=== PATIENT | female | born 1950 | race Asian ===

== ENCOUNTER 2016-12-10 15:34 | Inpatient (IN) | payer OTHER ==
[~2016-12-10] VITALS: Ht 160 cm; Wt 86.2 kg
[~2016-12-10 15:34] MED LIST: ALEVE220 M1 PO; ASA LO-DOSE81 MG PO; DULOXETINE HCL60 MG PO; FLUTMIS6 INH; GLIP10TA55 PO; LEVEMIR SC; METF500T PO
[2016-12-10 16:04] VITALS: BP 134/71; TEMP 98.3
[2016-12-10] MEDS ORDERED: MEDROXYPR AC5 MG OR (16:07)
[2016-12-10] MEDS ORDERED: INSU100P SC (16:08)
[2016-12-10 16:31] LABS: PLATELET COUNT 350 K/uL (152-353)
[2016-12-10 16:44] LABS: POTASSIUM 3.9 mmol/L (3.6-5.2); SODIUM 129 mmol/L (136-145)
[2016-12-10 20:31] LABS: POTASSIUM 3.9 mmol/L (3.6-5.2); SODIUM 137 mmol/L (136-145)
[2016-12-10 21:05] VITALS: BP 140/68; TEMP 98; Ht 160 cm; Wt 86.2 kg
--- NOTE | 2016-12-10 22:04 | NUR ---
BLOOD SUGAR 154.
[2016-12-11] VITALS (12 sets, daily range): BP systolic 11–139; BP diastolic 51–91; TEMP 98.2–98.6
--- NOTE | 2016-12-11 01:09 | NUR ---
LATE ENTRY 1900. RECEIVED PT FROM ER TRANSPORTED VIA WHEELCHAIR. PT ADMITTED WITH DKA. PT IS ALERT AND ORIENTED. PRESENTLY ON A INSULIN DRIP AT 7CC/HR VIA INFUSION PUMP. BLOOD SUGARS BEING CHECKED AND MONITORED. ADMISSION ASSESSMENT COMPLETED. FAMILY IN TO SPEAK TO PT.
--- NOTE | 2016-12-11 01:29 | NUR ---
BLOOD SUGAR CHECKED.
[2016-12-11 02:59] LABS: POTASSIUM 3.8 mmol/L (3.6-5.2); SODIUM 138 mmol/L (136-145)
--- NOTE | 2016-12-11 03:55 | NUR ---
UP OUT OF BED TO BATHROOM. VOIDED 500 ML OF DARK URINE. UA SPECIMAN COLLECTED AND SENT TO LAB.
--- NOTE | 2016-12-11 04:48 | NUR ---
PT STATES SHE FEELS MUCH BETTER. DOES REPORT TO THIS NURSE THAT SHE HAS HAD SURGERY A SKIN GRAFT AND HER ANKLE. IN THE PAST. INSULIN DRIP OF NOVOLIN R INFUSING AT 2 MLS AN HOUR. NS INFUSING AT 100 ML/HR.
--- NOTE | 2016-12-11 06:36 | NUR ---
LAB [facility] BLOOD FOR AM LABS.
[2016-12-11 06:38] LABS: PLATELET COUNT 344 K/uL (152-353)
[2016-12-11 06:46] LABS: POTASSIUM 3.6 mmol/L (3.6-5.2); SODIUM 134 mmol/L (136-145)
--- NOTE | 2016-12-11 07:30 | NUR ---
AM ASSESSMENT DONE. NAD NOTED AT THIS TIME.
--- NOTE | 2016-12-11 08:00 | NUR ---
BLOOD SUGAR 157. INSULIN DRIP INCREASED TO 2ML/2U/HR PER ORDER.
--- NOTE | 2016-12-11 08:40 | NUR ---
DR. BENSON HERE TO SEE PT. RECEIVED DIET ORDER FOR PT.
--- NOTE | 2016-12-11 09:07 | NUR ---
PT SITTING ON SIDE OF BED EATING BREAKFAST.
--- NOTE | 2016-12-11 09:52 | NUR ---
FSBS 225. INSULIN DRIP INCREASED TO 4U/HR. WILL CONTINUE TO MONITOR.
--- NOTE | 2016-12-11 11:30 | NUR ---
DR. BENSON HERE TO SEE PT.
--- NOTE | 2016-12-11 12:01 | NUR ---
BLOOD SUGAR 2263. INSULINI DRIP INCREASED TO 5U/HR.
--- NOTE | 2016-12-11 12:20 | NUR ---
BLOOD SUGAR 263. INSULIN DRIP INCREASED TO 5U/HR.
--- NOTE | 2016-12-11 12:28 | NUR ---
URINE NEGATIVE FOR KETONES. INSULIN DRIP STOPPED. WILL CONTINUE TO MONITOR.
--- NOTE | 2016-12-11 14:30 | NUR ---
PT TALKING ON CELL PHONE. NAD NOTED AT THIS TIME.
--- NOTE | 2016-12-11 16:41 | NUR ---
PT WATCHING TV. NAD NOTED AT THIS TIME.
--- NOTE | 2016-12-11 16:49 | NUR ---
FSBS 356. RECEIVED NEW ORDER FOR SSC.
--- NOTE | 2016-12-11 18:12 | NUR ---
MOVED PT TO ROOM 1107 VIA IN STABLE COND. ORIENTED PT TO ROOM SURROUNDINGS. GAVE REPORT TO MILAN PARKER RN.
--- NOTE | 2016-12-11 18:12 | NUR ---
Pt. MOVED TO ROOM 1107 FROM ICU. NO C/O VOICED.
[2016-12-11 22:39] LABS: POTASSIUM 4.1 mmol/L (3.6-5.2); SODIUM 135 mmol/L (136-145)
[2016-12-12] VITALS: BP 123/54; TEMP 98.1
[2016-12-12 04:00] VITALS: BP 129/66; TEMP 98
[2016-12-12 05:42] LABS: PLATELET COUNT 321 K/uL (152-353)
[2016-12-12 05:56] LABS: POTASSIUM 3.7 mmol/L (3.6-5.2); SODIUM 131 mmol/L (136-145)
[2016-12-12 08:00] VITALS: BP 114/54; TEMP 98.2
[2016-12-12 12:00] VITALS: BP 137/72; TEMP 98.2
[2016-12-12 15:54] VITALS: BP 152/65; TEMP 98.1
[2016-12-12 20:00] VITALS: BP 126/59; TEMP 98
[2016-12-12 20:59] LABS: POTASSIUM 3.9 mmol/L (3.6-5.2); SODIUM 131 mmol/L (136-145)
[2016-12-13] VITALS: BP 123/64; TEMP 98.3
[2016-12-13 04:00] VITALS: BP 134/71; TEMP 98.5
[2016-12-13 05:21] LABS: PLATELET COUNT 305 K/uL (152-353)
[2016-12-13 05:53] LABS: POTASSIUM 3.5 mmol/L (3.6-5.2); SODIUM 132 mmol/L (136-145)
[2016-12-13 08:00] VITALS: BP 131/82; TEMP 98
[2016-12-13 12:00] VITALS: BP 150/81; TEMP 98
[2016-12-13 16:00] VITALS: BP 138/81; TEMP 97.6
[2016-12-13 20:00] VITALS: BP 149/68; TEMP 98.7
[2016-12-14] VITALS: BP 147/78; TEMP 98.9
[2016-12-14 05:24] LABS: PLATELET COUNT 362 K/uL (152-353)
[2016-12-14 05:37] LABS: POTASSIUM 3.6 mmol/L (3.6-5.2); SODIUM 135 mmol/L (136-145)
[2016-12-14 05:55] VITALS: BP 147/80; TEMP 98
[2016-12-14 08:00] VITALS: BP 132/74; TEMP 98.1
[2016-12-14 11:53] VITALS: BP 162/83; TEMP 98.7
== END 2016-12-14 15:15 | disposition home or self-care (01) | DRG 638 ==
LOC: ED 15:34 → ICU 17:20 → MED/SURG 12-11 18:12
PROVIDERS: Emergency Medicine
DX: E13.10 Other specified diabetes mellitus with ketoacidosis without coma (principal); N39.0 Urinary tract infection, site not specified
CPT/HCPCS: 36415; 36600; 80048; 80053; 81000; 81002; 82805; 82948; 82962; 83036; 84443; 85027; 96372; 99283; J1650; J1815; J2405; J3490

== ENCOUNTER 2017-06-10 14:00 | Emergency (ER) | payer OTHER ==
[~2017-06-10] VITALS: Ht 160 cm; Wt 83.9 kg
[~2017-06-10 14:00] MED LIST changes: +INSU100P SC; +MEDROXYPR AC5 MG OR
[2017-06-10 14:05] VITALS: TEMP 98
[2017-06-10 15:50] VITALS: BP 112/82
== END 2017-06-10 15:51 | disposition home or self-care (01) ==
LOC: ED 14:00
DX: L03.012 Cellulitis of left finger (principal)
CPT/HCPCS: 96372; 99283; J0696

== ENCOUNTER 2017-06-17 14:44 | Outpatient (CLI) | payer OTHER | END 2017-06-17 15:45 | disposition home or self-care (01) | LOC: LABW 14:44 | DX: B35.1 Tinea unguium (principal) | CPT/HCPCS: 36415; 84450; 84460 ==

== ENCOUNTER → 2017-08-16 11:16 | Outpatient (CLI) | payer OTHER | END | disposition short-term general hospital (02) | LOC: AMB 11:16 | DX: R06.02 Shortness of breath (principal) ==

== ENCOUNTER 2017-09-05 14:30 | Emergency (ER) | payer OTHER ==
[~2017-09-05] VITALS: Ht 160 cm; Wt 86.2 kg
[2017-09-05 14:53] VITALS: TEMP 98.2
[2017-09-05 16:00] VITALS: BP 132/76
== END 2017-09-05 16:15 | disposition home or self-care (01) ==
LOC: ED 14:30
DX: R10.84 Generalized abdominal pain (principal)
CPT/HCPCS: 99283

== ENCOUNTER 2018-05-23 10:33 | Outpatient (CLI) | payer OTHER | END 2018-05-23 19:17 | disposition home or self-care (01) | LOC: MAMMO 10:33 | DX: Z12.31 Encounter for screening mammogram for malignant neoplasm of breast (principal) ==

== ENCOUNTER 2018-08-25 17:03 | Emergency (ER) | payer OTHER ==
[~2018-08-25] VITALS: Ht 160 cm; Wt 88.0 kg
[2018-08-25 17:55] LABS: PLATELET COUNT 393 K/uL (152-353)
[2018-08-25 18:04] LABS: POTASSIUM 4.1 mmol/L (3.6-5.2); SODIUM 133 mmol/L (136-145)
[2018-08-25 20:24] VITALS: BP 90/58; TEMP 97.9
== END 2018-08-25 20:25 | disposition home or self-care (01) ==
LOC: ED 17:03
DX: E11.65 Type 2 diabetes mellitus with hyperglycemia (principal)
CPT/HCPCS: 36415; 80053; 81000; 82550; 82553; 83036; 84484; 85027; 93005; 99283

== ENCOUNTER 2019-06-17 13:23 | Outpatient (CLI) | payer OTHER | END 2019-06-17 23:43 | disposition home or self-care (01) | LOC: MAMMO 13:23 | DX: Z12.31 Encounter for screening mammogram for malignant neoplasm of breast (principal) ==

== ENCOUNTER 2019-06-28 14:09 | Emergency (ER) | payer OTHER ==
[~2019-06-28] VITALS: Ht 160 cm; Wt 83.9 kg
[2019-06-28 14:55] LABS: PLATELET COUNT 489 K/uL (152-353)
[2019-06-28 15:02] LABS: POTASSIUM 4.5 mmol/L (3.6-5.2)
[2019-06-28 15:09] LABS: PARTIAL THROMBOPLASTIN TIME 28.7 SECONDS (24.5-33.6)
[2019-06-28 15:58] VITALS: BP 112/59; TEMP 98.1
== END 2019-06-28 16:00 | disposition home or self-care (01) ==
LOC: ED 14:09
PROVIDERS: Family Medicine
DX: E11.649 Type 2 diabetes mellitus with hypoglycemia without coma (principal); Z79.4 Long term (current) use of insulin; G45.9 Transient cerebral ischemic attack, unspecified; R06.4 Hyperventilation
CPT/HCPCS: 80053; 81000; 85027; 85610; 85730; 99283

== ENCOUNTER 2019-06-30 12:23 | Outpatient (CLI) | payer OTHER | END 2019-06-30 12:31 | disposition short-term general hospital (02) | LOC: AMB 12:23 | DX: R53.1 Weakness (principal) | CPT/HCPCS: A0425; A0427 ==

== ENCOUNTER 2019-06-30 12:33 | Observation (INO) | payer OTHER ==
[~2019-06-30] VITALS: Ht 160 cm; Wt 84.4 kg
[2019-06-30 12:35] VITALS: BP 116/62; TEMP 98.4
[2019-06-30 13:02] LABS: PLATELET COUNT 461 K/uL (152-353)
[2019-06-30 13:06] LABS: POTASSIUM 4.7 mmol/L (3.6-5.2)
[2019-06-30 13:23] LABS: PARTIAL THROMBOPLASTIN TIME 28.3 SECONDS (24.5-33.6)
[2019-06-30 15:36] VITALS: BP 142/60; TEMP 97.8; Ht 160 cm; Wt 84.4 kg
[2019-06-30 21:03] VITALS: BP 155/66; TEMP 97.9
[2019-07-01] VITALS: BP 98/41; TEMP 98.4
[2019-07-01 04:00] VITALS: BP 108/60; TEMP 97.7
[2019-07-01 05:35] LABS: PLATELET COUNT 335 K/uL (152-353)
[2019-07-01 06:08] LABS: POTASSIUM 4.2 mmol/L (3.6-5.2)
== END 2019-07-01 17:35 | disposition home or self-care (01) ==
LOC: ED 12:33 → MED/SURG 14:15
PROVIDERS: Internal Medicine; ADMIT Family Medicine
DX: G45.8 Other transient cerebral ischemic attacks and related syndromes (principal); E11.9 Type 2 diabetes mellitus without complications; I10 Essential (primary) hypertension; R53.1 Weakness; R47.81 Slurred speech; R13.19 Other dysphagia; J44.9 Chronic obstructive pulmonary disease, unspecified; R41.82 Altered mental status, unspecified
CPT/HCPCS: 36415; 80048; 80053; 80061; 81000; 84443; 85027; 85610; 85730; 93005; 93306; 96365; 96366; 96372; 96375; 99220; 99284; G0378; J1650; J3490; J7060

== ENCOUNTER 2021-03-13 11:46 | Outpatient (CLI) | payer OTHER ==
[2021-03-13 11:57] LABS: PLATELET COUNT 434 K/uL (152-353)
[2021-03-13 12:55] LABS: POTASSIUM 5.2 mmol/L (3.6-5.2)
== END 2021-03-13 19:13 | disposition home or self-care (01) ==
LOC: LAB 11:46
PROVIDERS: ATTEND Nurse Practitioner Family
DX: R10.31 Right lower quadrant pain (principal); R73.9 Hyperglycemia, unspecified; R11.2 Nausea with vomiting, unspecified
CPT/HCPCS: 80053; 81002; 82150; 83690; 83735; 84100; 85027

== ENCOUNTER 2021-11-27 09:29 | Outpatient (CLI) | payer OTHER ==
[2021-11-27 10:13] LABS: PLATELET COUNT 227 K/uL (152-353)
[2021-11-27 10:40] LABS: POTASSIUM 3.9 mmol/L (3.6-5.2)
== END 2021-11-27 18:53 | disposition home or self-care (01) ==
LOC: LABW 09:29
PROVIDERS: ATTEND Internal Medicine Hematology & Oncology
DX: C20 Malignant neoplasm of rectum (principal); D70.1 Agranulocytosis secondary to cancer chemotherapy
CPT/HCPCS: 36415; 80053; 82378; 85027

== ENCOUNTER 2021-12-11 15:56 | Outpatient (CLI) | payer OTHER ==
[2021-12-11 16:12] LABS: PLATELET COUNT 161 K/uL (152-353)
[2021-12-11 16:31] LABS: POTASSIUM 4.4 mmol/L (3.6-5.2)
== END 2021-12-11 19:58 | disposition home or self-care (01) ==
LOC: LABW 15:56
PROVIDERS: ATTEND Internal Medicine Hematology & Oncology
DX: C20 Malignant neoplasm of rectum (principal); D70.1 Agranulocytosis secondary to cancer chemotherapy
CPT/HCPCS: 36415; 80053; 82378; 85027

== ENCOUNTER 2022-01-08 15:11 | Outpatient (CLI) | payer OTHER | END 2022-01-08 19:05 | disposition home or self-care (01) | LOC: RAD 15:11 | PROVIDERS: ATTEND Nurse Practitioner Family | DX: S09.8XXA Other specified injuries of head, initial encounter (principal); M25.562 Pain in left knee; Y92.9 Unspecified place or not applicable ==

== ENCOUNTER 2022-02-05 16:32 | Observation (INO) | payer OTHER ==
[2022-02-05] VITALS (11 sets, daily range): BP systolic 114–155; BP diastolic 51–88; TEMP 97–98.6; Ht 160 cm; Wt 74.4 kg
[~2022-02-05] VITALS: Ht 160 cm; Wt 74.4 kg
[2022-02-05 17:35] LABS: PLATELET COUNT 41 K/uL (152-353)
[2022-02-05 17:47] LABS: POTASSIUM 3.3 mmol/L (3.6-5.2)
[2022-02-06] VITALS (10 sets, daily range): BP systolic 116–148; BP diastolic 48–76; TEMP 98.1–98.9
[2022-02-06 06:12] LABS: POTASSIUM 4.2 mmol/L (3.6-5.2)
[2022-02-06 06:44] LABS: PLATELET COUNT 32 K/uL (152-353)
[2022-02-06] MEDS ORDERED: DULOXETINE HCL30 MG PO (12:09)
[2022-02-06] MEDS ORDERED: FERROUS SULF325 MG PO (12:10)
[2022-02-06] MEDS ORDERED: REMERON SOLTAB15 MG PO (12:12)
[2022-02-06] MEDS ORDERED: TRESIBA FL200 UNIT/M SC (12:14)
[2022-02-06] MEDS ORDERED: OZEMPIC4 MG/3 ML SC (12:15)
[2022-02-06] MEDS ORDERED: ONDA4TAB3 PO (12:17)
[2022-02-06] MEDS ORDERED: LIPITOR40 MG PO (12:17)
[2022-02-06] MEDS ORDERED: EQ OMEPRAZOLE M20 MG PO (12:18)
[2022-02-07 04:01] VITALS: BP 131/62; TEMP 98.9
[2022-02-07 08:31] LABS: POTASSIUM 4.1 mmol/L (3.6-5.2)
[2022-02-07 08:35] VITALS: BP 144/73; TEMP 99.2
[2022-02-07 08:47] LABS: PLATELET COUNT 33 K/uL (152-353)
[2022-02-07 12:35] VITALS: BP 122/71; TEMP 98
[2022-02-07 16:35] VITALS: BP 146/75; TEMP 98.5
[2022-02-07 20:00] VITALS: BP 149/76; TEMP 98.4
[2022-02-08] VITALS: BP 132/72; TEMP 98.4
[2022-02-08 04:00] VITALS: BP 137/63; TEMP 98.4
[2022-02-08 04:55] LABS: POTASSIUM 3.8 mmol/L (3.6-5.2)
[2022-02-08 04:57] LABS: PLATELET COUNT 26 K/uL (152-353)
[2022-02-08 08:35] VITALS: BP 137/77; TEMP 98.4
[2022-02-08 12:00] VITALS: BP 123/72; TEMP 98.3
[2022-02-08 16:35] VITALS: BP 130/70; TEMP 98.7
[2022-02-08 20:00] VITALS: BP 101/59; TEMP 98.5
[2022-02-09] VITALS: BP 119/56; TEMP 98.6
[2022-02-09 04:00] VITALS: BP 116/61; TEMP 98.6
[2022-02-09 08:00] VITALS: BP 121/67; TEMP 98.6
[2022-02-09] MEDS ORDERED: CHOL4POW11 PO (08:57)
== END 2022-02-09 11:32 | disposition home or self-care (01) ==
LOC: ED 16:32 → MED/SURG 19:00
PROVIDERS: ADMIT Emergency Medicine Emergency Medical Services; ATTEND Internal Medicine Endocrinology, Diabetes & Metabolism
PROC: 30233N1 Transfusion of Nonautologous Red Blood Cells into Peripheral Vein, Percutaneous Approach (ICD-10-PCS; principal; 2022-02-05)
PROC: 30233N1 Transfusion of Nonautologous Red Blood Cells into Peripheral Vein, Percutaneous Approach (ICD-10-PCS; 2022-02-06)
DX: D64.89 Other specified anemias (principal); D61.818 Other pancytopenia; D69.6 Thrombocytopenia, unspecified; E11.65 Type 2 diabetes mellitus with hyperglycemia; Z86.73 Personal history of transient ischemic attack (TIA), and cerebral infarction without residual deficits; C20 Malignant neoplasm of rectum; J44.9 Chronic obstructive pulmonary disease, unspecified; I10 Essential (primary) hypertension; E78.49 Other hyperlipidemia; K21.9 Gastro-esophageal reflux disease without esophagitis
CPT/HCPCS: 36415; 36430; 36591; 80048; 80053; 82948; 84484; 85007; 85014; 85018; 85027; 86850; 86900; 86901; 86922; 87635; 93005; 96360; 96361; 96375; 99220; 99284; G0378; J0885; J1642; J2405; J7060; P9016; U0003